=== PATIENT | female | born 1990 | race Caucasian/White ===

== ENCOUNTER 2018-06-07 00:21 | Inpatient (IN) | payer BC, OTHER ==
[~2018-06-07] VITALS: Ht 157.5 cm; Wt 92.6 kg
[2018-06-07] VITALS (7 sets, daily range): BP systolic 96–131; BP diastolic 62–81
[2018-06-07] MEDS ORDERED: ONDANSETRON HCL INJ 2 MG/ML VIAL IV STA (00:49)
[2018-06-07] MEDS ORDERED: SODIUM CHLORIDE 0.9% 1000ML 1,000 ML IV STA (00:49)
[2018-06-07 01:20] LABS: BASOPHILS # (AUTO) 0.1 (0.0-0.1); BASOPHILS % 0.5 % (0.0-1.0); EOSINOPHILS # (AUTO) 0.2 (0.0-0.4); EOSINOPHILS % 1.5 % (0.0-6.0); HEMATOCRIT 40.1 % (34.2-44.1); HEMOGLOBIN 13.2 g/dL (12.0-16.0); LYMPHOCYTES # (AUTO) 1.6 (1.0-3.2); LYMPHOCYTES % 12.9 % (18.0-39.1); MEAN CORPUSCULAR HEMOGLOBIN 29.9 pg (28-32); MEAN CORPUSCULAR HGB CONC 32.9 g/dL (31-35); MEAN CORPUSCULAR VOLUME 90.7 fL (81-99); MONOCYTES # (AUTO) 0.8 (0.2-0.8); MONOCYTES % 6.4 % (4.4-11.3); NEUTROPHILS # (AUTO) 9.7 (2.1-6.9); NEUTROPHILS % 78.4 % (38.7-80.0); PLATELET COUNT 243 x10e3/uL (140-360); RED BLOOD COUNT 4.42 x10e6/uL (3.6-5.1); RED CELL DISTRIBUTION WIDTH 12.9 % (11.7-14.4)
[2018-06-07] MEDS: MORPHINE SULFATE 2 MG/ML SYR IV STA ×2 (01:23→03:55)
[2018-06-07 01:26] LABS: PREGNANCY TEST, URINE NEGATIVE (NEGATIVE)
[2018-06-07 01:34] LABS: BILIRUBIN,URINE NEGATIVE (NEGATIVE); CLARITY,URINE CLEAR (CLEAR); COLOR,URINE YELLOW (YELLOW); INR 0.95; KETONES,URINE NEGATIVE (NEGATIVE); LEUKOCYTE ESTERASE ,URINE 2+ (NEGATIVE); NITRITE,URINE NEGATIVE (NEGATIVE); PROTEIN,URINE DIPSTICK NEGATIVE (NEGATIVE); PROTHROMBIN TIME 11.9 seconds (11.9-14.5); URINE UROBILINOGEN 0.2 mg/dL (0.2 - 1)
[2018-06-07 01:35] LABS: BACTERIA,URINE RARE /HPF; EPITHELIAL CELLS,URINE RARE /LPF; PARTIAL THROMBOPLASTIN TIME 28.3 seconds (23.8-35.5); RBC,URINE 0-5 /HPF (0-5); WBC,URINE (MAN) 21-50 /HPF (0-5)
[2018-06-07 02:05] LABS: ALANINE AMINOTRANSFERASE 299 IU/L (0-55); ALBUMIN 3.6 g/dL (3.5-5.0); ALBUMIN/GLOBULIN RATIO 0.9 (0.8-2.0); ALKALINE PHOSPHATASE 154 IU/L (40-150); AMYLASE 46 U/L (25-125); ANION GAP 15.3 mmol/L (8-16); BLOOD UREA NITROGEN 19 mg/dL (7-26); BUN/CREATININE RATIO 23 (6-25); CALCIUM 9.6 mg/dL (8.4-10.2); CARBON DIOXIDE 26 mmol/L (22-29); CHLORIDE 105 mmol/L (98-107); CREATINE KINASE 73 IU/L (29-168); CREATININE, SERUM 0.84 mg/dL (0.57-1.11); EST GLOMERULAR FILTRATION RATE > 60 ML/MIN (60-); GLUCOSE 138 mg/dL (74-118); LIPASE 39 U/L (8-78); POTASSIUM 4.3 mmol/L (3.5-5.1); SODIUM 142 mmol/L (136-145)
--- NOTE | 2018-06-07 02:59 | Diagnostic Imaging Report ---
CHEST SINGLE (PORTABLE), 06/07/2018 12:49 AM Technique: CHEST SINGLE (PORTABLE) Comparison: None available. Clinical history: Right upper quadrant abdominal pain Findings: See Impression Impression: 1. Mildly enlarged cardiac silhouette, accentuated by portable technique. 2. No consolidation or edema. 3. No effusion or pneumothorax. Signed by: Dr Sheba Moreno MD on 06/07/2018 2:56 AM
[2018-06-07] MEDS ORDERED: SODIUM CHLORIDE 0.9% 1000ML 1,000 ML ONE (03:06)
[2018-06-07] MEDS: METRONIDAZOLE 500MG/NS 100ML 100 ML IV SCH ×4 (03:12→20:56)
[2018-06-07] MEDS ORDERED: SOTALOL80 MG PO (03:14)
[2018-06-07] MEDS ORDERED: MORPHINE SULFATE INJ 4 MG/ML INJ ONE (03:51)
[2018-06-07] MEDS: LEVOFLOXACIN 500MG/D5W 100ML 100 ML IV SCH ×2 (04:15→08:24)
--- NOTE | 2018-06-07 04:26 | Diagnostic Imaging Report ---
EXAM: US GALLBLADDER DATE: 06/07/2018 12:49 AM INDICATION: \S\ABD PAIN \S\[id number] \S\[id number], COMPARISON: None TECHNIQUE: Transverse and longitudinal soto scale and color doppler sonographic images of the upper abdomen were obtained. FINDINGS: LIVER 17.1 cm in the right midclavicular line. Upper limits of normal echogenicity, normal contour, no masses. GALLBLADDER Cholelithiasis. Gallbladder wall measures upper limits of normal, remeasured at 3 mm. No pericholecystic fluid. Negative sonographic Mays's sign. BILE DUCTS No intra nor extra-hepatic biliary dilation. Common bile duct measures 0.35 cm PANCREAS: Visualized portions are normal. RIGHT KIDNEY: 10.85 cm Echogenicity: Normal Collecting System: No hydronephrosis Stones: None Cyst/Mass: None VESSELS: Aorta: Visualized portions are within normal size limits Inferior Vena Cava: Visualized portions are normal Main Portal Vein: 1.2 cm. Patent, hepatopetal flow. FREE FLUID: None IMPRESSION: Cholelithiasis with borderline wall thickening but no pericholecystic fluid or Mays's sign. If there is ongoing clinical concern for acute cholecystitis, consider HIDA. Signed by: Dr Sheba Moreno MD on 06/07/2018 4:23 AM
[2018-06-07] MEDS ORDERED: MORPHINE SULFATE 2 MG/ML SYR IV PRN (05:15)
[2018-06-07] MEDS ORDERED: ONDANSETRON HCL INJ 2 MG/ML VIAL IV PRN (05:15)
[2018-06-07] MEDS: SODIUM CHLORIDE 0.9% 1000ML 1,000 ML IV SCH ×2 (05:21→15:13)
[2018-06-07] MEDS ORDERED: DICYCLOMINE HCL 20 MG/2 ML VIAL IM PRN (12:00)
--- NOTE | 2018-06-07 14:38 | Diagnostic Imaging Report ---
MRCP CPT code: 06776 History: Abdomen and chest pain, cholelithiasis Comparison: Right upper quadrant ultrasound 06/07/2018. Technique: Multiplanar, multisequence images of the abdomen were obtained per MRCP protocol. 3D volume rendered reformation images of the biliary tree were performed. No intravenous gadolinium was administered. Findings: Images are motion degraded. No intrahepatic biliary ductal dilatation. No beading or narrowing of the intrahepatic ducts. Cystic duct: Poorly visualized due to motion artifact. Common bile duct: Measures 5 mm in diameter. There are no intraluminal filling defects. No beading or narrowing. Pancreas duct: No dilatation. Gallbladder: Present and contains multiple dependently layering gallstones. These measure less than 10 mm. No gallbladder wall thickening there is a mild degree of pericholecystic inflammation. Liver: Calculated hepatic fat fraction is 11.7% suggestive of mild steatosis. There is no evidence of mass on T1 or T2-weighted sequences. Spleen: Normal size and signal. No mass Pancreas: Normal T1 and T2 signal. No mass Kidneys: No hydronephrosis. No mass. Adrenal glands: No discrete mass No intra or retroperitoneal adenopathy identified. Bowel: Stomach and visualized portions of the small bowel and large bowel are normal in diameter with normal wall thickness. No free fluid or fluid collection. Lung bases: Clear. Bones: Normal marrow signal. No focal osseous lesions. IMPRESSION: 1. No evidence of choledocholithiasis. No biliary ductal dilatation. 2. Normal pancreas duct. 3. Cholelithiasis. Small amount of fluid surrounding the gallbladder. Acute cholecystitis cannot be excluded. 4. Mild hepatic steatosis. Thank you for your referral. Signed by: Dr. Olya Wilson MD on 06/07/2018 2:35 PM
[2018-06-07] MEDS ORDERED: SEVOFLURANE INHAL SOLN 250 ML PEN BTL ONE (18:47)
[2018-06-07] MEDS ORDERED: LIDOCAINE HCL 2% LOCAL INJ 5 ML SDV VIAL INJ ONE (18:47)
[2018-06-07] MEDS ORDERED: ONDANSETRON HCL INJ 2 MG/ML VIAL ONE (18:47)
[2018-06-07] MEDS ORDERED: PROPOFOL IV EMULSION 10 MG/ML 20 ML VIAL ONE (18:47)
[2018-06-07] MEDS ORDERED: GLYCOPYRROLATE INJ 1MG/ 5 ML SYR ONE (18:47)
[2018-06-07] MEDS ORDERED: DEXAMETHASONE SOD PHOS INJ 4 MG/ML VIAL ONE (18:47)
[2018-06-07] MEDS ORDERED: ROCURONIUM BROMIDE 10 MG/ML 5ML VIAL ONE (18:47)
[2018-06-07] MEDS ORDERED: NEOSTIGMINE 5 MG/5ML SYR ONE (18:47)
[2018-06-07] MEDS: HYDROMORPHONE 1MG/1ML INJ IV PRN (20:56)
--- NOTE | 2018-06-07 21:03 | Consultation ---
CARDIOLOGY CONSULTATION REQUESTING PHYSICIAN: Dr. Cintron. REASON FOR CONSULTATION: Cardiac clearance. HISTORY OF PRESENT ILLNESS: This is a 27-year-old woman with history of PVCs who presented to [facility] with complaints of abdominal pain. The patient reports she began having right upper quadrant epigastric abdominal pain yesterday evening around 8 p.m. This was associated with cramping chest pain that was 6/10 in severity. The pain was associated with nausea and only lasted a few minutes. The chest pain resolved with Pepto-Bismol although her abdominal pain remained. The patient was found to have acute cholecystitis. Cardiology is consulted for preop evaluation. The patient denies any edema, orthopnea, lightheadedness or palpitations. REVIEW OF SYSTEMS: Negative except as per HPI. PAST MEDICAL HISTORY 1. Frequent PVCs. 2. History of kidney stones. PAST SURGICAL HISTORY: None. ALLERGIES: PLEASE SEE EMR. MEDICATIONS: Please see medication list. SOCIAL HISTORY: Denies tobacco, alcohol, or illicit drugs. FAMILY HISTORY: Pertinent with father with 5 stents with 1st in his late 40s. PHYSICAL EXAM: VITALS: Temperature 96.8, pulse 63, respiratory rate 20, blood pressure 110/70, oxygen saturation 100%. GENERAL: Awake and alert. Well-developed, well-nourished. HEENT: Pupils equal. No scleral icterus. Neck supple. No thyromegaly or cervical lymphadenopathy. No carotid bruits. LUNGS: Clear to auscultation bilaterally. No wheezes/crackles. CV: Normal rate. Regular rhythm. No murmur. Normal S1 and S2. ABDOMEN: Soft, non-tender, non-distended. EXT: No edema. NEURO: Nonfocal. LABS: WBC 12.3, hemoglobin 13.3, hematocrit 40.1, platelets 243,000. Sodium 142, potassium 4.3, chloride 105, CO2 26, BUN 19, creatinine 0.84. AST 423, ALL 299, alk phos 154. Troponin 0.003, BNP 47.8. EKG: Normal sinus rhythm, prolonged QT. CHEST X-RAY: Mildly enlarged cardiac silhouette essentially by portable technique. No consolidation or edema. No fusion or pneumothorax. CORONARY CT: Had a calcium score of 0 and no evidence of any coronary artery stenosis. ECHOCARDIOGRAM: Dated April 2018, demonstrated normal LV size with moderate concentric LVH. There was preserved LV systolic function with EF between 50% to 55%. There was impaired relaxation. IMPRESSION 1. Acute cholecystitis with cholelithiasis. 2. Chest pain. 3. Elevated LFTs 4. Frequent premature ventricular contractions. RECOMMENDATIONS: Repeat troponin. Given the patient's calcium score of 0 and atypical symptoms, this is unlikely to be of cardiac etiology. Recent echocardiogram was largely unremarkable. The patient may proceed with cholecystectomy without further cardiac evaluation. Continue Sotalol. Monitor the patient on telemetry. Thank you for this consult. We will continue to follow. Job#: [id number] MYA SERRATO
[2018-06-08] VITALS: BP 118/75
[2018-06-08] MEDS: METRONIDAZOLE 500MG/NS 100ML 100 ML IV SCH ×4 (03:00→20:56)
[2018-06-08 04:00] VITALS: BP 119/67
[2018-06-08] MEDS: SODIUM CHLORIDE 0.9% 1000ML 1,000 ML IV SCH ×4 (05:08→21:08)
[2018-06-08 05:46] LABS: BASOPHILS # (AUTO) 0.1 (0.0-0.1); BASOPHILS % 0.9 % (0.0-1.0); EOSINOPHILS # (AUTO) 0.2 (0.0-0.4); EOSINOPHILS % 3.8 % (0.0-6.0); HEMOGLOBIN 12.1 g/dL (12.0-16.0); LYMPHOCYTES # (AUTO) 1.6 (1.0-3.2); LYMPHOCYTES % 28.8 % (18.0-39.1); MEAN CORPUSCULAR HEMOGLOBIN 29.6 pg (28-32); MEAN CORPUSCULAR HGB CONC 31.8 g/dL (31-35); MEAN CORPUSCULAR VOLUME 92.9 fL (81-99); MONOCYTES # (AUTO) 0.5 (0.2-0.8); MONOCYTES % 8.5 % (4.4-11.3); NEUTROPHILS # (AUTO) 3.2 (2.1-6.9); NEUTROPHILS % 57.6 % (38.7-80.0); PLATELET COUNT 206 x10e3/uL (140-360); RED BLOOD COUNT 4.09 x10e6/uL (3.6-5.1); RED CELL DISTRIBUTION WIDTH 13.2 % (11.7-14.4)
[2018-06-08 06:16] LABS: ALANINE AMINOTRANSFERASE 1134 IU/L (0-55); ALBUMIN 2.8 g/dL (3.5-5.0); ALBUMIN/GLOBULIN RATIO 0.9 (0.8-2.0); ALKALINE PHOSPHATASE 212 IU/L (40-150); ANION GAP 12.6 mmol/L (8-16); BLOOD UREA NITROGEN 10 mg/dL (7-26); BUN/CREATININE RATIO 14 (6-25); CALCIUM 8.7 mg/dL (8.4-10.2); CARBON DIOXIDE 22 mmol/L (22-29); CHLORIDE 113 mmol/L (98-107); CREATININE, SERUM 0.72 mg/dL (0.57-1.11); EST GLOMERULAR FILTRATION RATE > 60 ML/MIN (60-); GLUCOSE 77 mg/dL (74-118); POTASSIUM 4.6 mmol/L (3.5-5.1); SODIUM 143 mmol/L (136-145)
[2018-06-08 08:00] VITALS: BP 116/61
[2018-06-08] MEDS: SOTALOL HCL 80 MG TAB PO SCH ×2 (08:49→17:00)
[2018-06-08] MEDS: LEVOFLOXACIN 500MG/D5W 100ML 100 ML IV SCH (10:30)
[2018-06-08 12:00] VITALS: BP 118/75
[2018-06-08] MEDS ORDERED: IOPAMIDOL 200 MG/ML 20 ML VIAL IT ONE (13:02)
[2018-06-08] MEDS ORDERED: INDOMETHACIN 50 MG SUPP.RECT RC ONE (13:03)
[2018-06-08] MEDS ORDERED: IOPAMIDOL 300MG/ML 50ML INFUS..BTL IV ONE (13:18)
[2018-06-08] MEDS ORDERED: GLUCAGON FOR INJ 1 MG VIAL ONE (13:21)
[2018-06-08] MEDS ORDERED: LACTATED RINGER'S 1,000 ML IV SCH ×2 (14:14→14:30)
--- NOTE | 2018-06-08 14:37 | Operative Report ---
DATE OF PROCEDURE: June 08, 2018 REFERRING PHYSICIAN: Dr. Tim Cintron/Dr. Cecil Blakely. PROCEDURE PERFORMED: Attempted endoscopic retrograde cholangiopancreatography. INDICATIONS FOR PROCEDURE: Cholelithiasis, elevated liver enzymes. MEDICATION: Patient was done under MAC. Please see anesthesiologist's note. PROCEDURE: With the patient in the prone position and after induction of adequate general endotracheal anesthesia, the flexible fiberoptic Olympus side-viewing scope was introduced into the esophagus and advanced all the way to the 2nd portion of the duodenum. The ampulla appeared to be within normal limits. Despite being in a good CBD cannulating position, the common bile duct could not be cannulated. The procedure was then aborted, and the scope was subsequently withdrawn. Patient tolerated the procedure well. IMPRESSION 1. Ampulla within normal limits. 2. Common bile duct could not be cannulated despite multiple attempts. Patient will need an intraoperative cholangiogram. Job#: [id number] cc:MD CECIL GORDON MD
[2018-06-08 16:00] VITALS: BP 118/72
--- NOTE | 2018-06-08 17:26 | Progress Note ---
DATE: June 08, 2018 CARDIOLOGY PROGRESS NOTE SUBJECTIVE: Patient denies chest pain or shortness of breath. She is sedated after ERCP. OBJECTIVE VITAL SIGNS: Temperature 98.4 degrees, pulse 76, respiratory rate 18, blood pressure 113/57, and oxygen saturation 100% on nonrebreather. GENERAL: Somnolent from sedation, but in no acute distress, arousable. LUNGS: Clear to auscultation bilaterally. No wheezes or crackles. CARDIOVASCULAR: Normal rate, regular rhythm. No murmur. Normal S1 and S2. ABDOMEN: Soft. Nontender. EXTREMITIES: No edema. CARDIAC MEDICATIONS: Sotalol 80 mg p.o. b.i.d. LABS: WBC 5.52, hemoglobin 12.1, hematocrit 38, and platelets 206. Sodium 142, potassium 4.6, chloride 113, CO2 of 22, BUN 10, and creatinine 0.74. AST 769, ALL 1134. Troponin less than 0.001. IMPRESSION 1. Acute cholecystitis with cholelithiasis. 2. Elevated left function tests. 3. Chest pain. 4. Frequent premature ventricular contractions. RECOMMENDATIONS: Continue current cardiac medications. Place the patient on telemetry once telemetry box is available. Patient is planned for cholecystectomy tomorrow. She may proceed without further cardiac evaluation. Thank you for this consult. We will continue to follow. Job#: [id number] LINDA
[2018-06-08] MEDS ORDERED: MIDAZOLAM HCL 2 MG/2 ML VIAL ONE (17:55)
[2018-06-08] MEDS ORDERED: FENTANYL CITRATE/PF 100MCG/2 ML INJ ONE (17:55)
[2018-06-08 20:00] VITALS: BP_SYST 135; BP_SYST 65; BP_DIAS 60
[2018-06-09] VITALS (8 sets, daily range): BP systolic 93–126; BP diastolic 53–72
[2018-06-09] MEDS: SODIUM CHLORIDE 0.9% 1000ML 1,000 ML IV SCH ×2 (01:31→18:25)
[2018-06-09] MEDS: METRONIDAZOLE 500MG/NS 100ML 100 ML IV SCH ×4 (02:54→20:55)
[2018-06-09 06:00] LABS: BASOPHILS % 0.3 % (0.0-1.0); EOSINOPHILS # (AUTO) 0.1 (0.0-0.4); EOSINOPHILS % 1.6 % (0.0-6.0); HEMATOCRIT 37.9 % (34.2-44.1); HEMOGLOBIN 12.3 g/dL (12.0-16.0); LYMPHOCYTES # (AUTO) 2.1 (1.0-3.2); MEAN CORPUSCULAR HEMOGLOBIN 29.7 pg (28-32); MEAN CORPUSCULAR HGB CONC 32.5 g/dL (31-35); MEAN CORPUSCULAR VOLUME 91.5 fL (81-99); MONOCYTES # (AUTO) 0.6 (0.2-0.8); MONOCYTES % 6.7 % (4.4-11.3); NEUTROPHILS # (AUTO) 6.1 (2.1-6.9); NEUTROPHILS % 67.8 % (38.7-80.0); PLATELET COUNT 235 x10e3/uL (140-360); RED BLOOD COUNT 4.14 x10e6/uL (3.6-5.1); RED CELL DISTRIBUTION WIDTH 13.3 % (11.7-14.4)
[2018-06-09 06:27] LABS: ALANINE AMINOTRANSFERASE 740 IU/L (0-55); ALBUMIN 2.7 g/dL (3.5-5.0); ALBUMIN/GLOBULIN RATIO 0.9 (0.8-2.0); ALKALINE PHOSPHATASE 208 IU/L (40-150); BLOOD UREA NITROGEN 13 mg/dL (7-26); BUN/CREATININE RATIO 19 (6-25); CALCIUM 8.6 mg/dL (8.4-10.2); CARBON DIOXIDE 17 mmol/L (22-29); CHLORIDE 110 mmol/L (98-107); EST GLOMERULAR FILTRATION RATE > 60 ML/MIN (60-); GLUCOSE 67 mg/dL (74-118); SODIUM 139 mmol/L (136-145)
[2018-06-09] MEDS: SOTALOL HCL 80 MG TAB PO SCH ×2 (09:00→18:25)
[2018-06-09] MEDS: LEVOFLOXACIN 500MG/D5W 100ML 100 ML IV SCH (09:00)
[2018-06-09] MEDS ORDERED: BUPIVACAINE 0.25%/EPI 30ML SDV INJ ONE (10:21)
[2018-06-09] MEDS ORDERED: IOPAMIDOL 300MG/ML 50ML INFUS..BTL IV ONE (10:21)
[2018-06-09] MEDS ORDERED: FENTANYL CITRATE/PF 100MCG/2 ML INJ ONE ×2 (13:35→18:02)
--- NOTE | 2018-06-09 14:53 | Operative Report ---
DATE OF PROCEDURE: June 09, 2018 PREOPERATIVE DIAGNOSES 1. Cholelithiasis. 2. Cholecystitis. 3. Abnormal liver chemistries. 4. Attempted endoscopic retrograde cholangiopancreatography. POSTOPERATIVE DIAGNOSES 1. Cholelithiasis. 2. Cholecystitis. 3. Abnormal liver chemistries. 4. Attempted endoscopic retrograde cholangiopancreatography. PROCEDURE PERFORMED: Laparoscopic cholecystectomy with intraoperative cholangiogram. ANESTHESIA: General endotracheal. ESTIMATED BLOOD LOSS: Minimal. DRAINS: None. COMPLICATIONS: None. INDICATIONS AND FINDINGS: The patient is a 27-year-old female admitted to Dr. Frankie Blakely's service complaining of abdominal pain. Workup revealed cholelithiasis and abnormal liver chemistries. The patient preoperatively had an MRCP that was negative for choledocholithiasis. However, the next day following admission, liver chemistries quadrupled. Then she underwent an attempted ERCP. The ampulla could not be cannulized. The patient was then scheduled for laparoscopic cholecystectomy with intraoperative cholangiogram. INTRAOPERATIVE FINDINGS: Cholelithiasis, cholecystitis. There was no ductal dilatation. The cystic duct was small and not dilated, nor was the common bile duct. There were small stones. An intraoperative cholangiogram was performed using 50% diluted dye that revealed free flow of dye into the duodenum and no obvious defects in the common bile duct secondary to choledocholithiasis. DESCRIPTION OF PROCEDURE: With the patient on the operative table in the supine position, after administration of general endotracheal anesthesia, she was prepped and draped for laparoscopic cholecystectomy. The procedure was begun by establishing a pneumoperitoneum in the umbilical site, after a stab wound was made in that location and the saline drop test was performed. A pneumoperitoneum was insufflated to 15 mm of pressure and then the 10-11 trocar placed in that location. The patient was rotated then to the left with the head up, and we placed a 10-mm subxiphoid port and finally 2 lateral working ports, 5 mm each, in the right mid-clavicular line and right anterior axillary line. The gallbladder was retracted cephalad using grasping forceps through the two 5-mm trocars, and then we began the dissection on the hepatoduodenal ligament. There was an artery which was intimately attached and intertwined with the cystic duct around it, and we had to dissect this artery off the cystic duct in order to gain length from the cystic duct to perform intraoperative cholangiogram. Once we did that, then we cleared the cystic duct for an intraoperative cholangiogram. Then using 50% diluted dye, we performed the study revealing no filling defects in the common hepatic duct. After we did that, then we went ahead and transected the cystic duct. Then we placed an Endo loop and stapled over the Endo loop and secured the closure. Then we removed the gallbladder from the liver bed using electrocautery dissection. Bleeding points were cauterized as they were encountered. We finally detached the gallbladder, placed it in an Endo bag and removed it through the umbilical port. After we did that, we inspected the operative field. There was no bile leak, no bleeding and no apparent bowel injury. We released the pneumoperitoneum and closed the wounds using #0 Vicryl for the umbilical fascia, 3-0 Vicryl for the subcutaneous tissue in that location as well as the subxiphoid port, and the skin of all the ports was closed using hue. Marcaine 0.25% with epinephrine was given as local block. The patient tolerated the procedure well and was taken to the recovery room in stable condition. Job#: [id number]
[2018-06-09] MEDS: HYDROMORPHONE 1MG/1ML INJ IV PRN ×2 (15:57→20:15)
[2018-06-09] MEDS ORDERED: ONDANSETRON HCL INJ 2 MG/ML VIAL ONE (17:41)
[2018-06-09] MEDS ORDERED: DEXAMETHASONE SOD PHOS INJ 4 MG/ML VIAL ONE (17:41)
[2018-06-09] MEDS ORDERED: SEVOFLURANE INHAL SOLN 250 ML PEN BTL ONE (17:41)
[2018-06-09] MEDS ORDERED: ROCURONIUM BROMIDE 10 MG/ML 5ML VIAL ONE (17:41)
[2018-06-09] MEDS ORDERED: GLYCOPYRROLATE INJ 1MG/ 5 ML SYR ONE (17:41)
[2018-06-09] MEDS ORDERED: NEOSTIGMINE 5 MG/5ML SYR ONE (17:41)
[2018-06-09] MEDS ORDERED: PROPOFOL IV EMULSION 10 MG/ML 20 ML VIAL ONE (17:41)
[2018-06-09] MEDS ORDERED: ESMOLOL HCL 100MG/10ML 10 MG/ML VIAL ONE (17:41)
[2018-06-09] MEDS ORDERED: LIDOCAINE HCL 2% LOCAL INJ 5 ML SDV VIAL INJ ONE (17:41)
[2018-06-09] MEDS ORDERED: PHENYLEPHRINE HCL 1% 10 MG/ML VIAL ONE (17:41)
[2018-06-09] MEDS ORDERED: KETOROLAC TROMETHAMINE 30 MG/ML VIAL ONE (17:41)
--- NOTE | 2018-06-09 17:55 | Diagnostic Imaging Report ---
Exam: Cholangiogram intraop History: Intraoperative cholangiogram. Comparison: MRCP 06/07/2018 TECHNIQUE: Fluoroscopic imaging provided by primary team. DISCUSSION: Right upper quadrant cholangiogram probe. Cholecystectomy. Contrast within the common bile duct and intrahepatic ducts demonstrates no filling defects or strictures. Normal caliber of the intra and extrahepatic biliary ducts. Visualized contrast within the duodenum. IMPRESSION: As above. Signed by: Dr. Ashly Nielson M.D. on 06/09/2018 5:14 PM
[2018-06-09] MEDS ORDERED: MIDAZOLAM HCL 2 MG/2 ML VIAL ONE (18:02)
--- NOTE | 2018-06-09 19:12 | Progress Note ---
DATE: June 09, 2018 CARDIOLOGY PROGRESS NOTE SUBJECTIVE: No major events, status post cholecystectomy. Feels better. REVIEW OF SYSTEMS: Some pain at the surgical site, otherwise negative. OBJECTIVE VITAL SIGNS: Temperature 97.4, pulse 68, respiratory rate 18, blood pressure 126/72, satting 100% on room air. GENERAL: A young female, well developed, well nourished, in no acute distress. CARDIOVASCULAR: Regular rate and rhythm. No murmurs, rubs or gallops. PMI nondisplaced. Palpable carotid pulses, palpable radial pulses, palpable pedal pulses. LUNGS: Clear to auscultation bilaterally. No respiratory distress. ABDOMEN: Soft, nontender, except at the surgical site. Nondistended. NEURO AND PSYCHIATRIC: Alert and oriented to person, place and time. Normal affect. MEDICATIONS: Reviewed. LABORATORY DATA: Reviewed. Notable for improving white count. IMAGING DATA: Reviewed. TELEMETRY DATA: Reviewed. Notable for normal sinus rhythm. No significant PVC burden. ASSESSMENT 1. Acute cholecystitis with cholelithiasis, status post cholecystectomy. 2. Chest pain. 3. Elevated liver function test. 4. Frequent premature ventricular contractions. RECOMMENDATIONS: The patient feels much better after her cholecystectomy, ruled out for ME with troponin x2. Continue Sotalol for her PVCs. The patient is ready to be discharged from a cardiovascular standpoint once she recovers from her surgery. Thank you for this consult. Will continue to follow. Job#: [id number]
[2018-06-10] MEDS: HYDROCODONE/APAP 7.5MG-325MG 1 EA TAB PO PRN ×3 (00:33→12:26)
[2018-06-10 00:35] VITALS: BP 122/59
[2018-06-10] MEDS: SODIUM CHLORIDE 0.9% 1000ML 1,000 ML IV SCH (02:19)
[2018-06-10] MEDS: METRONIDAZOLE 500MG/NS 100ML 100 ML IV SCH ×2 (02:19→08:17)
[2018-06-10 05:35] VITALS: BP 126/57
[2018-06-10 06:03] LABS: BASOPHILS % 0.4 % (0.0-1.0); EOSINOPHILS # (AUTO) 0.1 (0.0-0.4); EOSINOPHILS % 1.5 % (0.0-6.0); HEMATOCRIT 33.7 % (34.2-44.1); LYMPHOCYTES # (AUTO) 2.2 (1.0-3.2); LYMPHOCYTES % 26.2 % (18.0-39.1); MEAN CORPUSCULAR HGB CONC 32.6 g/dL (31-35); MEAN CORPUSCULAR VOLUME 91.8 fL (81-99); MONOCYTES # (AUTO) 0.6 (0.2-0.8); MONOCYTES % 7.5 % (4.4-11.3); NEUTROPHILS # (AUTO) 5.4 (2.1-6.9); NEUTROPHILS % 63.7 % (38.7-80.0); PLATELET COUNT 198 x10e3/uL (140-360); RED BLOOD COUNT 3.67 x10e6/uL (3.6-5.1); RED CELL DISTRIBUTION WIDTH 13.8 % (11.7-14.4)
[2018-06-10 06:23] LABS: ALANINE AMINOTRANSFERASE 509 IU/L (0-55); ALBUMIN 2.6 g/dL (3.5-5.0); ALKALINE PHOSPHATASE 154 IU/L (40-150); ANION GAP 13.6 mmol/L (8-16); BLOOD UREA NITROGEN 9 mg/dL (7-26); BUN/CREATININE RATIO 13 (6-25); CALCIUM 8.4 mg/dL (8.4-10.2); CARBON DIOXIDE 19 mmol/L (22-29); CHLORIDE 112 mmol/L (98-107); CREATININE, SERUM 0.68 mg/dL (0.57-1.11); EST GLOMERULAR FILTRATION RATE > 60 ML/MIN (60-); GLUCOSE 81 mg/dL (74-118); POTASSIUM 3.6 mmol/L (3.5-5.1); SODIUM 141 mmol/L (136-145)
[2018-06-10 07:20] VITALS: BP 108/70
[2018-06-10 08:05] VITALS: BP 108/70
[2018-06-10 08:14] VITALS: BP 98/53
[2018-06-10] MEDS: SOTALOL HCL 80 MG TAB PO SCH (08:17)
[2018-06-10] MEDS: LEVOFLOXACIN 500MG/D5W 100ML 100 ML IV SCH (09:28)
[2018-06-10] MEDS ORDERED: TYLENOL WITH C1 EACH PO (12:15)
[2018-06-10 12:20] VITALS: BP 100/62
--- NOTE | 2018-06-10 12:24 | Progress Note ---
DATE: INTERNAL MEDICINE PROGRESS NOTE SUBJECTIVE: She is doing well. No significant complaints. She is tolerating a diet. Status post cholecystectomy. PHYSICAL EXAMINATION VITAL SIGNS: Blood pressure is 98/53, temperature 98.4, heart rate 62 per minute, respiratory rate 18 per minute, oxygen saturation 94%. HEART: Regular rhythm. Normal S1, S2 sounds. LUNGS: Clear bilaterally. ABDOMEN: Soft. EXTREMITIES: No evidence of cyanosis, edema or trauma. BLOOD WORK: We have BMP with sodium 141, potassium 3.6, chloride 112, CO2 19, BUN 9, creatinine 0.66, glucose 81. On the CBC, white blood count 8.51, hemoglobin 11.0, hematocrit 33.7, platelet count 198,000. PT 11.9, INR 0.95, PTT 28.3. AST 128, ALT 509, total bilirubin 0.8, alkaline phosphatase 154. FINAL IMPRESSION 1. Acute cholecystitis, status post cholecystectomy. 2. Elevated liver function tests. 3. Acute postsurgical anemia. PLAN OF TREATMENT 1. Continue to monitor liver function tests. 2. Continue diet as tolerated. 3. Discharge hopefully over the weekend. Job#: [id number]
[2018-06-10] MEDS ORDERED: PROMETHAZINE HC25 M1 PO (12:27)
--- NOTE | 2018-06-10 15:40 | Progress Note ---
DATE: June 10, 2018 CARDIOLOGY PROGRESS NOTE SUBJECTIVE: Patient denies chest pain or shortness of breath. OBJECTIVE VITAL SIGNS: Temperature 97.3 degrees, pulse 67, respiratory rate 18, blood pressure 100/62. Oxygen saturation is 96% on room air. GENERAL: Awake, alert, in no acute distress. LUNGS: Clear to auscultation bilaterally. No wheezes or crackles. CARDIOVASCULAR: Normal rate, regular rhythm. No murmur. Normal S1 and S2. ABDOMEN: Soft. Nontender. EXTREMITIES: No edema. CARDIAC MEDICATIONS: Sotalol 80 mg p.o. b.i.d. LABS: WBC 8.51, hemoglobin 11, hematocrit 33.7, platelets 198. Sodium 141, potassium 3.6, chloride 112, CO2 19, BUN 9, creatinine 0.68. AST 128, ALT 509, alk phos 154. TELEMETRY: Normal sinus rhythm. IMPRESSION 1. Acute cholecystitis with cholelithiasis, status post cholecystectomy. 2. Elevated liver function tests, improving. 3. Chest pain. 4. Frequent premature ventricular contractions. RECOMMENDATIONS: Continue current cardiac medications. LFTs are improving. Postoperative management per surgery. Please have the patient follow up with us in the office in 2 weeks. Job#: [id number]
== END 2018-06-10 14:00 | disposition home or self-care (01) | DRG 769 ==
LOC: ER 00:21 → ERHOLD 05:31 → MED/SURG3 06:05
PROC: 0FJB8ZZ Inspection of Hepatobiliary Duct, Via Natural or Artificial Opening Endoscopic (ICD-10-PCS; principal; 2018-06-08 13:04)
PROC: 0FT44ZZ Resection of Gallbladder, Percutaneous Endoscopic Approach (ICD-10-PCS; 2018-06-09)
PROC: BF131ZZ Fluoroscopy of Gallbladder and Bile Ducts using Low Osmolar Contrast (ICD-10-PCS; 2018-06-09)
DX: O99.63 Diseases of the digestive system complicating the puerperium (principal); K80.01 Calculus of gallbladder with acute cholecystitis with obstruction; D62 Acute posthemorrhagic anemia; I49.3 Ventricular premature depolarization; R07.9 Chest pain, unspecified; R94.5 Abnormal results of liver function studies; Z88.0 Allergy status to penicillin; Z91.048 Other nonmedicinal substance allergy status; Z87.442 Personal history of urinary calculi
CPT/HCPCS: 36415; 43260; 71045; 74181; 74300; 76000; 76705; 80053; 81001; 81025; 82150; 82550; 82553; 83690; 83735; 83880; 84484; 85025; 85610; 85730; 87086; 88304; 93005; 96360; 96361; 99284; C1766; J0500; J1100; J1170; J1610; J1885; J1956; J2001; J2250; J2270; J2370; J2405; J7030; Q9966

== ENCOUNTER 2019-02-13 21:20 | Emergency (ER) | payer SELFPAY ==
[~2019-02-13] VITALS: Ht 157.5 cm; Wt 92.5 kg
[~2019-02-13 21:20] MED LIST: PROMETHAZINE HC25 M1 PO; SOTALOL80 MG PO; TYLENOL WITH C1 EACH PO
[2019-02-13] MEDS ORDERED: IBUPROFEN 200 MG TAB ONE (21:50)
[2019-02-13] MEDS ORDERED: IBUPROFEN 600 MG TAB ONE (21:50)
[2019-02-13] MEDS ORDERED: IBUPROFEN 200 MG TAB PO STA (21:55)
[2019-02-13] MEDS ORDERED: IBUPROFEN 600 MG TAB PO STA (21:55)
[2019-02-13 22:09] LABS: BASOPHILS % 0.5 % (0.0-1.0); HEMATOCRIT 40.4 % (34.2-44.1); LYMPHOCYTES # (AUTO) 1.2 (1.0-3.2); MEAN CORPUSCULAR HEMOGLOBIN 29.5 pg (28-32); MEAN CORPUSCULAR HGB CONC 34.7 g/dL (31-35); MEAN CORPUSCULAR VOLUME 85.2 fL (81-99); MONOCYTES # (AUTO) 0.2 (0.2-0.8); NEUTROPHILS # (AUTO) 2.9 (2.1-6.9); PLATELET COUNT 174 x10e3/uL (140-360); RED BLOOD COUNT 4.74 x10e6/uL (3.6-5.1)
[2019-02-13 22:14] LABS: INR 0.99; PROTHROMBIN TIME 13.6 seconds (11.9-14.5)
[2019-02-13 22:15] LABS: BILIRUBIN,URINE 2+ (NEGATIVE); CLARITY,URINE CLOUDY (CLEAR); COLOR,URINE YELLOW (YELLOW); KETONES,URINE TRACE (NEGATIVE); LEUKOCYTE ESTERASE ,URINE TRACE (NEGATIVE); NITRITE,URINE NEGATIVE (NEGATIVE); PARTIAL THROMBOPLASTIN TIME 31.8 seconds (23.8-35.5); PROTEIN,URINE DIPSTICK 1+ (NEGATIVE); URINE UROBILINOGEN 4 mg/dL (0.2 - 1)
[2019-02-13 22:23] LABS: ALANINE AMINOTRANSFERASE 217 IU/L (0-55); ALBUMIN/GLOBULIN RATIO 0.8 (0.8-2.0); ALKALINE PHOSPHATASE 164 IU/L (40-150); ANION GAP 10.9 mmol/L (8-16); BLOOD UREA NITROGEN 7 mg/dL (7-26); BUN/CREATININE RATIO 8 (6-25); CALCIUM 9.2 mg/dL (8.4-10.2); CARBON DIOXIDE 26 mmol/L (22-29); CHLORIDE 96 mmol/L (98-107); CREATININE, SERUM 0.84 mg/dL (0.57-1.11); EST GLOMERULAR FILTRATION RATE > 60 ML/MIN (60-); GLUCOSE 102 mg/dL (74-118); POTASSIUM 3.9 mmol/L (3.5-5.1); SODIUM 129 mmol/L (136-145)
[2019-02-13 22:24] LABS: BACTERIA,URINE MANY /HPF; CALCIUM OXALATE CRYSTALS,UR FEW (FEW); EPITHELIAL CELLS,URINE MANY /LPF; MUCUS,URINE FEW (RARE); RBC,URINE 21-50 /HPF (0-5); WBC,URINE (MAN) 21-50 /HPF (0-5)
[2019-02-13 22:31] LABS: INFLUENZAE A&B ANTIGEN (RAPID) NEGATIVE (NEGATIVE); STREPTOCOCCUS GRP A ANTIGEN NEGATIVE (NEGATIVE)
[2019-02-13] MEDS ORDERED: CEFTRIAXONE SOD 1 GM/NS 50 ML 50 ML IV ONE (22:45)
[2019-02-13] MEDS ORDERED: SODIUM CHLORIDE 0.9% 1000ML 1,000 ML IV SCH ×2 (22:45)
--- NOTE | 2019-02-13 23:18 | Diagnostic Imaging Report ---
EXAMINATION: CHEST 2 VIEWS INDICATION: ^fever, cough ^[id number] ^[id number] COMPARISON: 06/07/2018 FINDINGS: PA and lateral views TUBES and LINES: None. LUNGS: Lungs are well inflated. Mild right lower lung field hazy opacities. PLEURA: No pleural effusion or pneumothorax. HEART AND MEDIASTINUM: The cardiomediastinal silhouette is unremarkable. BONES AND SOFT TISSUES: No acute osseous lesion. Soft tissues are unremarkable. UPPER ABDOMEN: No free air under the diaphragm. IMPRESSION: Mild right lower lung field hazy opacities. Developing pneumonia cannot be excluded. Signed by: Dr. Romel Alfonso MD on 02/13/2019 11:14 PM
[2019-02-14] MEDS ORDERED: LEVAQUIN500 MG PO (00:19)
[2019-02-14 00:53] VITALS: BP 104/67
== END 2019-02-14 00:54 | disposition home or self-care (01) ==
LOC: ER 21:20
DX: N30.01 Acute cystitis with hematuria (principal); J15.9 Unspecified bacterial pneumonia; B34.9 Viral infection, unspecified
CPT/HCPCS: 36415; 71046; 80053; 81001; 83518; 83605; 85025; 85610; 85730; 87070; 87400; 99284; J0696; J7030